=== PATIENT | female | born 1975 | race African-American/Black ===

== ENCOUNTER 2016-04-30 23:24 | Emergency (ER) | payer OTHER ==
[2016-04-30 23:34] VITALS: BP 115/69; PULSE 75; TEMP 98.4; BMI 36.3
--- NOTE | 2016-04-30 23:37 | PDOC ---
History of Present Illness - General Chief Complaint: Injury Stated Complaint: RT ARM INJURY Time Seen by Provider: 04/30/16 23:28 History Source: Patient Exam Limitations: No Limitations - History of Present Illness Initial Comments: 04/30/16 23:28 This is a 41-year-old female comes in complaining of a bruise on her right forearm and is concerned about a blood clot. Patient said she has a history of DVT. Patient said she was moving some heavy items when one of the eyelids had a sharp edge that resulted in a small penetrating injury to her arm. Patient said shortly after that she was lifting and other heavy item it suddenly blew up and became swollen and bruised looking. Patient is not currently on any blood thinners. Patient denies any other symptoms. PAST MEDICAL HISTORY: As per history of present illness PAST SURGICAL HISTORY: no significant history FAMILY HISTORY: no pertinant history SOCIAL HISTORY: Pt lives with family and is employed. MEDICATIONS: reviewed ALLERGIES: As per nursing notes Review of Systems General: No fevers or chills, no weakness, no weight loss HEENT: No change in vision. No sore throat,. No ear pain CardioVascular: No chest pain or shortness of breath Respiratory:No cough, or wheezing. Gastrointestinal: no nausea, vomitting, diarrhea or constipation, No rectal bleeding Genitourinary: No dysuria, hematuria, or frequency Musculoskeletal: Left forearm as per history of present illness Neurologic: No headache, vertigo, dizziness or loss of consciousness Psychiatric: nor depression Skin: No rashes or easy bruising Endocrine: no increased thirst or abnormal weight change Allergic: no skin or latex allergy All other systems reviewed and normal GENERAL: The patient is awake, alert, and fully oriented, in no acute distress. HEAD: Normal with no signs of trauma. EYES: Pupils equal, round and reactive to light, extraocular movements intact, sclera anicteric, conjunctiva clear. EXTREMITIES: Normal range of motion, no edema. Left forearm: There is a contusion of the flexor surface of the left forearm that has approximate dimensions of a 3 x 2" area. There is some mild tenderness to the area. Neurovascular distal is intact. There is no tender palpable cord above the contusion. NEUROLOGICAL: Normal speech, normal gait. PSYCH: Normal mood, normal affect. SKIN: Warm, Dry, normal turgor, no rashes or lesions noted. Assessment and plan: This is a 41-year-old female who injured her right forearm resulting in a contusion to the forearm. Patient was reassured that this was not a type of blood clot that she needs to be worried about and that she can ice the area Tylenol for pain and follow-up with her doctor as needed Past History - Past Medical History Allergies/Adverse Reactions: Allergies Allergy/AdvReac Type Severity Reaction Status Date / Time Iodinated Contrast Media - Allergy Severe Difficulty Verified 01/31/15 00:10 Oral and Breathing codeine [Codeine] Allergy Verified 03/11/15 08:31 iodine [Iodine] Allergy Rash Verified 03/11/15 08:31 shellfish derived Allergy Difficulty Verified 03/11/15 08:31 Breathing vancomycin Allergy Hives Verified 03/11/15 08:31 venom-honey bee Allergy Verified 03/11/15 08:31 [bee venom (honey bee)] tree nuts Allergy Unknown Uncoded 03/11/15 08:31 BLUEBERRIES Allergy Uncoded 03/11/15 08:31 CANTALOUPE Allergy Difficulty Uncoded 03/11/15 08:31 Breathing KIWI Allergy Difficulty Uncoded 03/11/15 08:31 Breathing LO Allergy Difficulty Uncoded 01/31/15 00:10 Breathing STRAWBERRIES Allergy Difficulty Uncoded 01/31/15 00:10 Breathing TUNA Allergy Uncoded 01/31/15 00:10 Home Medications: Ambulatory Orders Atazanavir Sulfate/Cobicistat [Evotaz 300 mg-150 mg Tablet] 1 each PO DAILY 01/20 Emtricitabine/Tenofovir [Truvada -] 1 tab PO DAILY 01/17/15 Fluoxetine HCl [Prozac] 10 mg PO DAILY 01/17/15 Albuterol Sulfate Inhaler - [Ventolin HFA Inhaler -] 2 inh PO Q4H PRN #1 inh Alprazolam [Xanax] 0.5 mg PO DAILY PRN #0 01/21/15 Tiotropium [place] [Spiriva] 1 inh PO DAILY #1 inhaler 01/21/15 Anemia: No Asthma: Yes Cancer: No Cardiac Disorders: No CVA: Yes COPD: No CHF: No Dementia: No Diabetes: No GI Disorders: No Disorders: No HTN: No Hypercholesterolemia: No HIV: Yes Liver Disease: No Psychiatric Problems: Yes (anxiety) Seizures: No Thyroid Disease: No - Surgical History Abdominal Surgery: Yes Appendectomy: Yes Cardiac Surgery: No Cholecystectomy: No Lung Surgery: No Neurologic Surgery: No Orthopedic Surgery: No - Immunization History Td Vaccination: Yes Immunization Up to Date: Yes - Psycho/Social/Smoking Cessation Hx Anxiety: No Suicidal Ideation: No Smoking Status: No Smoking History: Never smoked Have you smoked in the past 12 months: No Number of Cigarettes Smoked Daily: 0 If you are a former smoker, when did you quit?: many years ago Hx Alcohol Use: Yes (SOCIAL) Drug/Substance Use Hx: No Substance Use Type: None Hx Substance Use Treatment: No *DC/Admit/Observation/Transfer Diagnosis at time of Disposition: Contusion of right forearm - Discharge Dispostion Disposition: HOME Condition at time of disposition: Stable Admit: No - Patient Instructions Additional Instructions: You can take Tylenol as needed for pain. You can also apply some ice to the area 20 minutes at a time 3 times a day for the next 2 days. Return to the emergency department immediately with ANY new, persistent or worsening symptoms. Continue any medications as previously prescribed by your physician. You should follow up with your primary doctor as soon as possible regarding today's emergency department visit. . Please make sure your doctor reviews the results of your emergency evaluation. Thank you for coming to the Emergency Department today for your care. It was a pleasure to see you today. Please note that your evaluation is INCOMPLETE until you follow-up with your doctor.
== END 2016-04-30 23:43 | disposition home or self-care (01) ==
LOC: FER 23:24
DX: S50.11XA Contusion of right forearm, initial encounter (principal); W22.8XXA Striking against or struck by other objects, initial encounter; Y93.89 Activity, other specified; Y92.9 Unspecified place or not applicable; J45.909 Unspecified asthma, uncomplicated; Z86.73 Personal history of transient ischemic attack (TIA), and cerebral infarction without residual deficits; F41.9 Anxiety disorder, unspecified; Z21 Asymptomatic human immunodeficiency virus [HIV] infection status
CPT/HCPCS: 99282-25

== ENCOUNTER 2017-05-17 16:01 | Emergency (ER) | payer OTHER ==
[2017-05-17 16:24] VITALS: BP 146/74; PULSE 94; TEMP 98.6; BMI 35.5
--- NOTE | 2017-05-17 16:54 | PDOC ---
History of Present Illness - General History Source: Patient Exam Limitations: No Limitations - History of Present Illness Initial Comments: The patient is a 42 year old female with significant past medical history of asthma, anxiety, CVA, COPD and HIV presents to the ED with Flu like symptoms since 6 days ago. The patient reports not getting a flu shot recently. 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 Associated symptoms includes, feeling weak , body ache, and diaphoresis and productive cough with yellow to green phlegm produced. Social History: The patient denies smoking or the use of any recreational drugs. The patient reports shes a social drinker. Surgical History: The patient reports getting a hysterectomy. 05/17/17 17:40 <Briana Brown - Last Filed: 05/17/17 17:40> <Linda Vincent - Last Filed: 05/17/17 18:45> - General Chief Complaint: Respiratory Stated Complaint: FLU LIKE SYMPTMOS Time Seen by Provider: 05/17/17 16:08 Past History <Briana Brown - Last Filed: 05/17/17 17:40> - Past Medical History Anemia: No Asthma: Yes Cancer: No Cardiac Disorders: No CVA: Yes COPD: Yes CHF: No Dementia: No Diabetes: No GI Disorders: No Disorders: No HTN: No Hypercholesterolemia: No Liver Disease: No Psychiatric Problems: Yes (anxiety) Seizures: No Thyroid Disease: No Other medical history: HIV - Surgical History Abdominal Surgery: Yes Appendectomy: Yes Cardiac Surgery: No Cholecystectomy: No Lung Surgery: No Neurologic Surgery: No Orthopedic Surgery: No Other Surgical History: Hysterectomy 05/17/17 16:50 - Immunization History Td Vaccination: Yes Immunization Up to Date: Yes - Suicide/Smoking/Psychosocial Hx Smoking Status: No Smoking History: Former smoker Have you smoked in the past 12 months: No Number of Cigarettes Smoked Daily: 0 If you are a former smoker, when did you quit?: many years ago Information on smoking cessation initiated: No Hx Alcohol Use: No Drug/Substance Use Hx: No Substance Use Type: None Hx Substance Use Treatment: No <Linda Vincent - Last Filed: 05/17/17 18:45> - Past Medical History Allergies/Adverse Reactions: Allergies Allergy/AdvReac Type Severity Reaction Status Date / Time Iodinated Contrast- Oral and Allergy Severe Difficulty Verified 05/17/17 16:03 IV Dye Breathing codeine [Codeine] Allergy Verified 05/17/17 16:03 iodine [Iodine] Allergy Rash Verified 05/17/17 16:03 shellfish derived Allergy Difficulty Verified 05/17/17 16:03 Breathing vancomycin Allergy Hives Verified 05/17/17 16:03 venom-honey bee Allergy Verified 05/17/17 16:03 [bee venom (honey bee)] tree nuts Allergy Unknown Uncoded 03/11/15 08:31 BLUEBERRIES Allergy Uncoded 03/11/15 08:31 CANTALOUPE Allergy Difficulty Uncoded 03/11/15 08:31 Breathing KIWI Allergy Difficulty Uncoded 03/11/15 08:31 Breathing LO Allergy Difficulty Uncoded 01/31/15 00:10 Breathing STRAWBERRIES Allergy Difficulty Uncoded 01/31/15 00:10 Breathing TUNA Allergy Uncoded 01/31/15 00:10 Home Medications: Ambulatory Orders Atazanavir Sulfate/Cobicistat [Evotaz 300 mg-150 mg Tablet] 1 each PO HS Fluoxetine HCl [Prozac] 10 mg PO DAILY 01/17/15 Albuterol Sulfate Inhaler - [Ventolin HFA Inhaler -] 2 inh PO Q4H PRN #1 inh Alprazolam [Xanax] 0.5 mg PO DAILY PRN #0 01/21/15 Tiotropium [place] [Spiriva] 1 inh PO DAILY #1 inhaler 01/21/15 Emtricitabine/Tenofov Alafenam [Descovy 200-25 mg Tablet (Nf)] 1 each PO HS 12/24 Prednisone 20 mg PO BID #10 tablet 05/17/17 Review of Systems - Review of Systems Able to Perform ROS?: Yes Comments:: CONSTITUTIONAL: (+) Subjective fever, chills, diaphoresis and generalized weakness. Absent: malaise, loss of appetite HEENT: Absent: rhinorrhea, nasal congestion, throat pain, throat swelling, difficulty swallowing, mouth swelling, ear pain, eye pain, visual Changes CARDIOVASCULAR: Absent: chest pain, syncope, palpitations, irregular heart rate, lightheadedness , peripheral edema RESPIRATORY: (+) productive cough with green to yellow Absent: shortness of breath, dyspnea with exertion, orthopnea, wheezing, stridor , hemoptysis GASTROINTESTINAL: Absent: abdominal pain, abdominal distension, nausea, vomiting, diarrhea, constipation, melena, hematochezia GENITOURINARY: Absent: dysuria, frequency, urgency, hesitancy, hematuria, flank pain, genital pain MUSCULOSKELETAL: Absent: myalgia, arthralgia, joint swelling SKIN: Absent: rash, itching, pallor HEMATOLOGIC/IMMUNOLOGIC: Absent: easy bleeding, easy bruising, lymphadenopathy, frequent infections ENDOCRINE: Absent: unexplained weight gain, unexplained weight loss, heat intolerance, cold intolerance NEUROLOGIC: Absent: headache, focal weakness or paresthesias, dizziness, unsteady gait, seizure, mental status changes, bladder or bowel incontinence PSYCHIATRIC: Absent: anxiety, depression, suicidal or homicidal ideation, hallucinations. 05/17/17 17:14 <Briana Brown - Last Filed: 05/17/17 17:40> *Physical Exam - Vital Signs Last Vital Signs Temp Pulse Resp BP Pulse Ox 98.6 F 94 H 18 146/74 95 05/17/17 16:02 05/17/17 16:02 05/17/17 16:02 05/17/17 16:02 05/17/17 16:02 - Physical Exam Comments: GENERAL: (+) Obese. Mild to moderate distress Well developed, well nourished. Awake and alert. HEENT: (+) dry hacking cough Normocephalic, atraumatic. PERRLA, EOMI. No conjunctival pallor. Sclera are non- icteric. Moist mucous membranes. Oropharynx is clear. Normal Tonsils. Normal pharynx without hyperemia. NECK: Supple. Full ROM. No JVD. Carotid pulses 2+ and symmetric, without bruits. No thyromegaly. No lymphadenopathy. CARDIOVASCULAR: Regular rate and rhythm. No murmurs, rubs, or gallops. Distal pulses are 2+ and symmetric. PULMONARY: (+) crackle at the right base. No evidence of respiratory distress. No wheezing, rales or rhonchi. ABDOMINAL: Soft. Non-tender. Non-distended. No rebound or guarding. No organomegaly. Normoactive bowel sounds. MUSCULOSKELETAL Normal range of motion at all joints. No bony deformities or tenderness. No CVA tenderness. EXTREMITIES: No cyanosis. No clubbing. No edema. No calf tenderness. SKIN: Warm and dry. Normal capillary refill. No rashes. No jaundice. NEUROLOGICAL: Alert, awake, appropriate. Cranial nerves 2-12 intact. No deficits to light touch and temperature in face, upper extremities and lower extremities. No motor deficits in the in face, upper extremities and lower extremities. Normoreflexic in the upper and lower extremities. Normal speech. Toes are down- going bilaterally. Gait is normal without ataxia. PSYCHIATRIC: Cooperative. Good eye contact. Appropriate mood and affect. 05/17/17 16:57 <Birana Brown - Last Filed: 05/17/17 17:40> - Vital Signs Last Vital Signs Temp Pulse Resp BP Pulse Ox 98.6 F 94 H 18 146/74 95 05/17/17 16:02 05/17/17 16:02 05/17/17 16:02 05/17/17 16:02 05/17/17 16:02 <Linda Vincent - Last Filed: 05/17/17 18:45> *DC/Admit/Observation/Transfer - Attestations Scribe Attestion: 05/17/17 17:48 Documentation prepared by Briana Brown, acting as director of medical services for Linda Vincent MD. <Briana Brown - Last Filed: 05/17/17 17:40> - Discharge Dispostion Admit: No <Linda Vincent - Last Filed: 05/17/17 18:45> Diagnosis at time of Disposition: Asthma attack - Discharge Dispostion Disposition: HOME Condition at time of disposition: Stable - Prescriptions Prescriptions: Prednisone 20 mg PO BID #10 tablet - Patient Instructions Printed Discharge Instructions: DI for Asthma -- Adult
[2017-05-17] MEDS ORDERED: ALBUTEROL SO4 2.5/IPRATROPIUM 0.5 INH SOL 3 ML VIAL.NEB. NEB ONE ×2 (17:48→17:51)
[2017-05-17] MEDS ORDERED: predniSONE 20 MG TABLET (UD) PO ONE (17:52)
[2017-05-17] MEDS ORDERED: predniSONE 20 MG TABLET (UD) ONE (17:54)
== END 2017-05-17 19:11 | disposition home or self-care (01) ==
LOC: FER 16:01
PROC: 3E0F7GC Introduction of Other Therapeutic Substance into Respiratory Tract, Via Natural or Artificial Opening (ICD-10-PCS; principal; 2017-05-17)
DX: J45.41 Moderate persistent asthma with (acute) exacerbation (principal); F41.9 Anxiety disorder, unspecified; Z21 Asymptomatic human immunodeficiency virus [HIV] infection status; Z86.73 Personal history of transient ischemic attack (TIA), and cerebral infarction without residual deficits; Z87.891 Personal history of nicotine dependence
CPT/HCPCS: 71046-TC-FY; 94640; 99281-25

== ENCOUNTER 2017-05-21 23:36 | Emergency (ER) | payer OTHER ==
--- NOTE | 2017-05-21 23:41 | PDOC ---
History of Present Illness - General Chief Complaint: Respiratory Stated Complaint: FLU Time Seen by Provider: 05/21/17 23:41 History Source: Patient Exam Limitations: No Limitations - History of Present Illness Initial Comments: 05/22/17 00:00 This is a 42-year-old female who comes in complaining of upper respiratory tract type symptoms. Patient was here 4 days ago and diagnosed with the flu. Patient was started on azithromycin and prednisone. As patient does have a history of COPD. Patient said that she hasn't gotten any better and continues to cough. Patient has one more day of the prednisone. Patient said that she is been using her inhaler helps her brief time period that symptoms return. Patient denies any fevers or chills. PAST MEDICAL HISTORY: no significant history PAST SURGICAL HISTORY: no significant history FAMILY HISTORY: no pertinant history SOCIAL HISTORY: Pt lives with family and is employed. MEDICATIONS: reviewed ALLERGIES: As per nursing notes Review of Systems General: No fevers or chills, no weakness, no weight loss HEENT: No change in vision. No sore throat,. No ear pain CardioVascular: No chest pain or shortness of breath Respiratory:+ cough, _+ wheezing. Gastrointestinal: no nausea, vomitting, diarrhea or constipation, No rectal bleeding Genitourinary: No dysuria, hematuria, or frequency Musculoskeletal: No joint or muscle pain or swelling Neurologic: No headache, vertigo, dizziness or loss of consciousness Psychiatric: nor depression Skin: No rashes or easy bruising Endocrine: no increased thirst or abnormal weight change Allergic: no skin or latex allergy All other systems reviewed and normal Exam: General: Well-nourished well-developed individual, no acute distress HEENT: Throat: Normal, tonsils normal, no erythema or exudate Neck: Supple, no meningeal signs, no lymphadenopathy Eyes::Pupils equal reactive and round, extraocular motion intact Chest: Nontender to palpation Cardiac: S1-S2 normal, regular rate and rhythm, no murmurs rubs or gallops Respiratory: Lungs are some mild decrease in breath sounds with mild expiratory wheezing bilateral. Abdomen: Soft, nondistended, normal bowel sounds, nontender to palpation diffusely Extremities: Warm, dry, no cyanosis, clubbing, or edema Skin: No rashes Neuro: Alert and oriented x3, CN II - XII intact, nonfocal exam with normal strength, normal sensation, normal reflexes, normal gait, Psych: Normal mood and affect Past History - Past Medical History Allergies/Adverse Reactions: Allergies Allergy/AdvReac Type Severity Reaction Status Date / Time Iodinated Contrast- Oral and Allergy Severe Difficulty Verified 05/17/17 16:03 IV Dye Breathing codeine [Codeine] Allergy Verified 05/17/17 16:03 iodine [Iodine] Allergy Rash Verified 05/17/17 16:03 shellfish derived Allergy Difficulty Verified 05/17/17 16:03 Breathing vancomycin Allergy Hives Verified 05/17/17 16:03 venom-honey bee Allergy Verified 05/17/17 16:03 [bee venom (honey bee)] tree nuts Allergy Unknown Uncoded 03/11/15 08:31 BLUEBERRIES Allergy Uncoded 03/11/15 08:31 CANTALOUPE Allergy Difficulty Uncoded 03/11/15 08:31 Breathing KIWI Allergy Difficulty Uncoded 03/11/15 08:31 Breathing LO Allergy Difficulty Uncoded 01/31/15 00:10 Breathing STRAWBERRIES Allergy Difficulty Uncoded 01/31/15 00:10 Breathing TUNA Allergy Uncoded 01/31/15 00:10 Home Medications: Ambulatory Orders Atazanavir Sulfate/Cobicistat [Evotaz 300 mg-150 mg Tablet] 1 each PO HS Fluoxetine HCl [Prozac] 10 mg PO DAILY 01/17/15 Albuterol Sulfate Inhaler - [Ventolin HFA Inhaler -] 2 inh PO Q4H PRN #1 inh Alprazolam [Xanax] 0.5 mg PO DAILY PRN #0 01/21/15 Tiotropium [place] [Spiriva] 1 inh PO DAILY #1 inhaler 01/21/15 Azithromycin 250 mg PO BID #10 tablet 05/17/17 Emtricitabine/Tenofov Alafenam [Descovy 200-25 mg Tablet (Nf)] 1 each PO HS 12/24 Prednisone 20 mg PO BID #10 tablet 05/17/17 Benzonatate [Tessalon Pearls -] 100 mg PO TID #21 capsule 05/22/17 Anemia: No Asthma: Yes Cancer: No Cardiac Disorders: No CVA: Yes COPD: Yes CHF: No Dementia: No Diabetes: No GI Disorders: No Disorders: No HTN: No Hypercholesterolemia: No Liver Disease: No Psychiatric Problems: Yes (anxiety) Seizures: No Thyroid Disease: No - Surgical History Abdominal Surgery: Yes Appendectomy: Yes Cardiac Surgery: No Cholecystectomy: No Lung Surgery: No Neurologic Surgery: No Orthopedic Surgery: No - Immunization History Td Vaccination: Yes Immunization Up to Date: Yes - Suicide/Smoking/Psychosocial Hx Smoking Status: No Smoking History: Former smoker Have you smoked in the past 12 months: No Number of Cigarettes Smoked Daily: 0 If you are a former smoker, when did you quit?: many years ago Hx Alcohol Use: No Drug/Substance Use Hx: No Substance Use Type: None Hx Substance Use Treatment: No *DC/Admit/Observation/Transfer Diagnosis at time of Disposition: Cough in adult - Discharge Dispostion Disposition: HOME Condition at time of disposition: Stable Admit: No - Prescriptions Prescriptions: Benzonatate [Tessalon Pearls -] 100 mg PO TID #21 capsule - Referrals Referrals: Lu Jay [Primary Care Provider] - - Patient Instructions Additional Instructions: For the cough take Tessalon Perles 1 as often as 3 times a day do not chew them as they will numb your mouth. Continue to use your albuterol inhaler 2 puffs as often as every 4-6 hours as needed. Finish your prednisone. Finish her azithromycin. Return to the emergency department immediately with ANY new, persistent or worsening symptoms. Continue any medications as previously prescribed by your physician. You should follow up with your primary doctor as soon as possible regarding today's emergency department visit. . Please make sure your doctor reviews the results of your emergency evaluation. Thank you for coming to the Emergency Department today for your care. It was a pleasure to see you today. Please note that your evaluation is INCOMPLETE until you follow-up with your doctor. - Post Discharge Activity
[2017-05-21] MEDS ORDERED: ALBUTEROL SO4 2.5/IPRATROPIUM 0.5 INH SOL 3 ML VIAL.NEB. NEB ONE (23:44)
[2017-05-21 23:45] VITALS: BP 125/76; PULSE 100; TEMP 98.5; BMI 35.5
== END 2017-05-22 00:27 | disposition home or self-care (01) ==
LOC: FER 23:36
PROC: 3E0F7GC Introduction of Other Therapeutic Substance into Respiratory Tract, Via Natural or Artificial Opening (ICD-10-PCS; principal; 2017-05-21)
DX: R05 Cough (principal); Z87.891 Personal history of nicotine dependence; J44.9 Chronic obstructive pulmonary disease, unspecified; F41.9 Anxiety disorder, unspecified; Z86.73 Personal history of transient ischemic attack (TIA), and cerebral infarction without residual deficits
CPT/HCPCS: 71046-TC-FY; 99281-25

== ENCOUNTER 2017-10-24 06:24 | Day surgery (SDC) | payer OTHER ==
[2017-10-23 11:51] VITALS: BMI 34.4
[~2017-10-24 06:24] MED LIST: BETAMET ACET/BETAMET NA PH 30 MG/5 ML VIAL IJ ONE; BUPIVACAINE HCL/PF 0.25% (2.5MG/ML) 10 ML VIAL IJ ONE; LIDOCAINE HCL 1%, 10 MG/ML (50 mL VIAL) IJ ONE
[2017-10-24 07:08] VITALS: TEMP 97.9
[2017-10-24] MEDS ORDERED: PROPOFOL 20 ML ONE (08:57)
[2017-10-24] MEDS ORDERED: BUPIVACAINE HCL/PF 0.25% (2.5MG/ML) 10 ML VIAL IJ ONE (09:07)
[2017-10-24] MEDS ORDERED: LIDOCAINE HCL 1%, 10 MG/ML (50 mL VIAL) IJ ONE (09:07)
[2017-10-24] MEDS ORDERED: BETAMET ACET/BETAMET NA PH 30 MG/5 ML VIAL IJ ONE (09:07)
[2017-10-24] MEDS ORDERED: LIDOCAINE HCL/PF 1% SDV 5ML VIAL ONE (09:25)
[2017-10-24] MEDS ORDERED: BUPIVACAINE HCL/PF 0.25% (2.5MG/ML) 10 ML VIAL ONE (09:26)
[2017-10-24] MEDS ORDERED: BETAMET ACET/BETAMET NA PH 30 MG/5 ML VIAL ONE (09:26)
[2017-10-24 10:06] VITALS: BP 118/72; PULSE 52
--- NOTE | 2017-10-24 13:12 | PROC ---
Procedure Note Procedure: Date of service: 10/24/2017 Preoperative Diagnosis: Low back pain and lumbar radiculopathy on Left Postoperative Diagnosis: Same Procedure Performed: Lumbar Epidural Steroid Injection (LESI) on Left L4-5 with NO dye under Fluoroscopy Anesthesia: Local / MAC Anesthesiologist: Procedure: I discussed with the patient in detail about the risks, benefits, and alternatives to treatment not only limited to infection, headache, numbness , weakness, and injury to nerves, blood vessels and muscles. The patient understood, agreed and signed the written consent. The patient was placed in the prone position with the head, abdomen and legs supported with the pillows. The lumbosacral area was prepped and draped with Betadine times three in a sterile fashion. Lumbar vertebrae were identified under the C-arm. At L4-5 level on the Left side, 3 ml of 1 % Lidocaine was infiltrated into the skin and subcutaneous tissue. A 3 inch, #20 gauge Tuohy needle was advanced to the epidural space with loss of resistance technique under fluoroscopic guidance. Aspiration was negative for cerebrospinal fluid and blood. A solution of 2.5 ml of Celestone, 2.5 ml of 0.25% Marcaine and a total of 5 ml was injected slowly. While Tuohy needle was withdrawn 2.0 ml of 1 % Lidocaine was infiltrated. Bleeding was checked. Betadine was wiped off. A sterile bandage was placed. The patient tolerated the procedure well. There were no immediate complications. The patient was transferred to the recovery room. The patient was observed for some time and discharged as per ASU criteria. The patient was told to apply ice at the injection site. Follow up appointment was given and also call my office at [phone]. If there is any problem, call my office or report to Emergency Room. Luther Quiros M.D.
== END 2017-10-24 10:40 | disposition home or self-care (01) ==
LOC: JASU-SURG 06:24
PROVIDERS: ATTEND Physical Medicine & Rehabilitation
PROC: 3E0R33Z Introduction of Anti-inflammatory into Spinal Canal, Percutaneous Approach (ICD-10-PCS; 2017-10-24)
PROC: B01BZZZ Fluoroscopy of Spinal Cord (ICD-10-PCS; 2017-10-24)
PROC: 3E0R3BZ Introduction of Anesthetic Agent into Spinal Canal, Percutaneous Approach (ICD-10-PCS; principal; 2017-10-24 08:00)
DX: M54.16 Radiculopathy, lumbar region (principal); M54.5 Low back pain
CPT/HCPCS: 76000-TC-FY

== ENCOUNTER 2017-11-11 14:23 | Emergency (ER) | payer OTHER ==
[2017-11-11 14:48] VITALS: BP 130/91; PULSE 74; TEMP 98.3; BMI 36.0
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
[2017-11-11] MEDS ORDERED: KETOROLAC TROMETHAMINE 30 MG/1 ML VIAL IM ONE (15:09)
[2017-11-11] MEDS ORDERED: KETOROLAC TROMETHAMINE 30 MG/1 ML VIAL ONE (15:19)
== END 2017-11-11 16:36 | disposition home or self-care (01) ==
LOC: FER 14:23
CPT/HCPCS: 72131-TC; 99281-25

== ENCOUNTER 2018-02-12 01:06 | Observation (INO) | payer OTHER ==
[2018-02-12 01:13] VITALS: BMI 37.1
[2018-02-12] MEDS ORDERED: SODIUM CHLORIDE 0.9% 1000 ML INFUS.BAG IV ONE (01:13)
[2018-02-12] MEDS ORDERED: ACETAMINOPHEN 1000 MG/100 ML VIAL (NON FORMULARY) IVPB ONE (01:13)
[2018-02-12] MEDS ORDERED: KETOROLAC TROMETHAMINE 30 MG/1 ML VIAL IVPUSH ONE (01:13)
[2018-02-12] MEDS ORDERED: DEXAMETHASONE SOD PHOSPHATE 4 MG/1 ML VIAL IVPUSH ONE (01:13)
--- NOTE | 2018-02-12 01:13 | PDOC ---
History of Present Illness - General Chief Complaint: Pain Stated Complaint: SORE THROAT Time Seen by Provider: 02/12/18 01:12 - History of Present Illness Initial Comments: 02/12/18 01:37 44 years old HIV +, undetectable VL, presents to the ED with six-day history of progressively worsening fever chills body aches nasal congestion and sore throat. Sore throat is severe 10 out of 10 associated with hoarse voice no drooling no neck stiffness with generalized body aches mild headache coughing Past History - Past Medical History Allergies/Adverse Reactions: Allergies Allergy/AdvReac Type Severity Reaction Status Date / Time Iodinated Contrast- Oral and Allergy Severe Difficulty Verified 02/12/18 02:45 IV Dye Breathing metronidazole [From Flagyl] Allergy Severe Verified 02/12/18 02:45 codeine [Codeine] Allergy Verified 02/12/18 02:45 iodine [Iodine] Allergy Rash Verified 02/12/18 02:45 shellfish derived Allergy Difficulty Verified 02/12/18 02:45 Breathing vancomycin Allergy Hives Verified 02/12/18 02:45 venom-honey bee Allergy Verified 02/12/18 02:45 [bee venom (honey bee)] BLUEBERRIES Allergy Unknown Rash Uncoded 02/12/18 02:49 CANTALOUPE Allergy Unknown Difficulty Uncoded 02/12/18 02:50 Breathing KIWI Allergy Unknown Difficulty Uncoded 02/12/18 02:50 Breathing LO Allergy Unknown Difficulty Uncoded 02/12/18 02:50 Breathing STRAWBERRIES Allergy Unknown Difficulty Uncoded 02/12/18 02:50 Breathing tree nuts Allergy Unknown Rash Uncoded 02/12/18 02:48 TUNA Allergy Unknown Uncoded 02/12/18 02:51 Home Medications: Ambulatory Orders Atazanavir Sulfate/Cobicistat [Evotaz 300 mg-150 mg Tablet] 1 each PO HS Albuterol Sulfate Inhaler - [Ventolin HFA Inhaler -] 2 inh PO Q4H PRN #1 inh Tiotropium [place] [Spiriva] 1 inh PO DAILY #1 inhaler 01/21/15 Emtricitabine/Tenofov Alafenam [Descovy 200-25 mg Tablet (Nf)] 1 each PO HS 12/24 Alprazolam [Xanax] 1 mg PO DAILY PRN 10/23/17 Anemia: Yes Asthma: Yes Cancer: No Cardiac Disorders: No CVA: Yes (rt. sided cva 2002) COPD: Yes CHF: No Dementia: No Diabetes: Yes (gestational in 2006) GI Disorders: No Disorders: No (incontenence) HTN: No Hypercholesterolemia: No Liver Disease: No Psychiatric Problems: Yes (anxiety) Seizures: No Thyroid Disease: No - Surgical History Abdominal Surgery: Yes Appendectomy: Yes Cardiac Surgery: No Cholecystectomy: No Lung Surgery: No Neurologic Surgery: No Orthopedic Surgery: No - Immunization History Td Vaccination: Yes Immunization Up to Date: Yes - Suicide/Smoking/Psychosocial Hx Smoking Status: No Smoking History: Never smoked Have you smoked in the past 12 months: No Number of Cigarettes Smoked Daily: 0 If you are a former smoker, when did you quit?: many years ago Hx Alcohol Use: No Drug/Substance Use Hx: No Substance Use Type: None Hx Substance Use Treatment: No Review of Systems - Review of Systems Comments:: 02/12/18 01:39 ROS: A complete review of 10 out of 10 review of systems is taken and is negative apart from what is previously mentioned below and in the HPI. *Physical Exam - Physical Exam Comments: 02/12/18 01:39 Vitals: Triage Vital signs reviewed General Appearance: no acute distress, well nourished well developed, Head: Atraumatic, Eyes: Pupils equal reactive round, extraocular movement intact Ears: TM's normal bilaterally; Nose: Nares patent bilaterally;no nasal congestion Throat: Posterior oropharynx with erythema, mucous membranes moist, Neck: Supple;No Nucal rigidity, no stridor Chest Wall: Nontender Cardiac: Regular rate and rhythym, no murmurs, no rubs, no gallops, Lungs: Clear to auscultation bilateral, good air movement bilaterally, Abdomen: Soft, non distended, normal bowel sounds, non tender to palpation Extremities: Full range of motion to all extremities, no cyanosis, clubbing, or edema Skin: Warm and dry, no rashes or lesions, no rash, no petechiae Psych: normal mood, normal affect ED Treatment Course - LABORATORY CBC & Chemistry Diagram: 02/12/18 01:20 02/12/18 01:20 Medical Decision Making - Medical Decision Making 02/12/18 03:46 44 years old HIV +, undetectable VL, presents to the ED with six-day history of progressively worsening fever chills body aches nasal congestion and sore throat. Sore throat is severe, associated with hoarse voice no drooling no neck stiffness with nasal congestion, generalized body aches mild headache coughing Plan is flu swab rapid strep labs IV Tylenol IV Decadron IV Toradol observe and reassess Reevaluation patient feels somewhat better but does not feel well enough to return home Given comorbidities and persistence of symptomatology we'll observe overnight. Re-evaluation 330am. No difficulty breathing no stridor no fever no tripoding no drooling, Pt has been able to tolerate some fluids at home but with pain A soft tissue next x-ray was performed which demonstrated no evidence of epiglottitis interpreted by me At this time my suspicion for epiglottitis is low most likely she has a bad viral pharyngitis/influenza or influenza-like illness Given patient's persistence of symptoms despite treatment in the ED we'll observe overnight for continued symptomatic treatment IV fluids and monitoring. *DC/Admit/Observation/Transfer Diagnosis at time of Disposition: Influenza-like illness - Discharge Dispostion Condition at time of disposition: Stable Decision to Admit order: Yes - Referrals - Patient Instructions - Post Discharge Activity
[2018-02-12] MEDS ORDERED: ALBUTEROL SO4 2.5/IPRATROPIUM 0.5 INH SOL 3 ML VIAL.NEB. NEB ONE (01:39)
[2018-02-12] MEDS ORDERED: ONDANSETRON 4 MG/2 ML VIAL IVPUSH ONE (02:00)
[2018-02-12 02:38] LABS: BASO % 0.6 % (0-2.0); EOS % 2.7 % (0-4.5); HEMATOCRIT 39.4 % (32.4-45.2); HEMOGLOBIN 13.2 GM/dL (10.7-15.3); MCH 27.2 pg (25.7-33.7); MCHC 33.6 g/dl (32.0-36.0); MONO % 10.1 % (3.8-10.2); NEUT % 38.6 % (42.8-82.8); PLATELET COUNT 249 K/MM3 (134-434); RBC 4.86 M/mm3 (3.60-5.2); RDW 12.4 % (11.6-15.6); WHITE BLOOD COUNT 5.6 K/mm3 (4.0-10.0)
[2018-02-12 02:43] LABS: ALBUMIN 3.4 g/dl (3.4-5.0); ALK PHOS 84 U/L (45-117); ANION GAP 6 MMOL/L (8-16); BILIRUBIN,TOTAL 0.4 mg/dL (0.2-1); BLOOD UREA NITROGEN 6 mg/dL (7-18); CALCIUM 8.1 mg/dL (8.5-10.1); CHLORIDE 105 mmol/L (98-107); CO2 27 mmol/L (21-32); CREATININE 0.7 mg/dL (0.55-1.3); GLUCOSE,RANDOM 103 mg/dL (74-106); POTASSIUM 3.8 mmol/L (3.5-5.1); SGOT/AST 24 U/L (15-37); SGPT/ALT 40 U/L (13-61); SODIUM 139 mmol/L (136-145)
[2018-02-12] MEDS ORDERED: OSELTAMIVIR PHOSPHATE 75 MG CAPSULE PO ONE ×2 (03:04→15:30)
[2018-02-12] MEDS ORDERED: OSELTAMIVIR PHOSPHATE 75 MG CAPSULE ONE (03:13)
[2018-02-12] MEDS ORDERED: ONDANSETRON 4 MG/2 ML VIAL IVPUSH PRN (03:16)
[2018-02-12] MEDS ORDERED: SODIUM CHLORIDE 1,000 ML IV SCH (03:30)
[2018-02-12] MEDS ORDERED: ACETAMINOPHEN 650 MG/20.3 ML ORAL SOLUTION (CUPS) PO PRN (08:00)
[2018-02-12] MEDS ORDERED: PT OWN MED DRAWER 7, Y5N ONE (09:15)
[2018-02-12] MEDS ORDERED: ALBUTEROL SO4 8 GM HFA INHALER IH PRN (09:35)
[2018-02-12] MEDS ORDERED: PATIENT'S OWN MEDICATION (NON-FORMULARY) (Alprazolam [Xanax] 1 MG) PO PRN (09:35)
--- NOTE | 2018-02-12 09:35 | HP ---
CHIEF COMPLAINT: Fever, sore throat, malaise PCP: Dr. Mauricio, [facility]; [phone]; FAX [phone] HISTORY OF PRESENT ILLNESS: 43 year-old female with a PMH significant for asthma, COPD, and HIV. Patient presents with a complaint of fever, sweats, chills, nasal congestion, sore throat, and body aches x 1 week. ER course was notable for: (1) Afebrile, no leukocytosis (2) CXR and soft tissue neck xray unremarkable (3) Decadron 4mg x 1; NS x 1L; Tamiflu x 1 Recent Travel: No PAST MEDICAL HISTORY: Asthma COPD HIV CVA (2002) Pulmonary embolus (2013) Gestational diabetes (2006) Anxiety PAST SURGICAL HISTORY: x 2 Appendectomy Hysterectomy Tonsillectomy & adenoidectomy Social History: Smoking: former Alcohol: denies Drugs: denies Family History: Allergies Iodinated Contrast- Oral and IV Dye Allergy (Severe, Verified 02/12/18 02:45) Difficulty Breathing intubated metronidazole [From Flagyl] Allergy (Severe, Verified 02/12/18 02:45) shock codeine [Codeine] Allergy (Verified 02/12/18 02:45) ANAPHYLAXIS iodine [Iodine] Allergy (Verified 02/12/18 02:45) Rash shellfish derived Allergy (Verified 02/12/18 02:45) Difficulty Breathing vancomycin Allergy (Verified 02/12/18 02:45) Hives itchy tongue venom-honey bee [bee venom (honey bee)] Allergy (Verified 02/12/18 02:45) BLUEBERRIES Allergy (Unknown, Uncoded 02/12/18 02:49) Rash CANTALOUPE Allergy (Unknown, Uncoded 02/12/18 02:50) Difficulty Breathing KIWI Allergy (Unknown, Uncoded 02/12/18 02:50) Difficulty Breathing LO Allergy (Unknown, Uncoded 02/12/18 02:50) Difficulty Breathing STRAWBERRIES Allergy (Unknown, Uncoded 02/12/18 02:50) Difficulty Breathing tree nuts Allergy (Unknown, Uncoded 02/12/18 02:48) Rash TUNA Allergy (Unknown, Uncoded 02/12/18 02:51) HOME MEDICATIONS: Home Medications Medication Instructions Recorded Atazanavir Sulfate/Cobicistat 1 each PO HS 01/17/15 [Evotaz 300 mg-150 mg Tablet] Albuterol Sulfate Inhaler - 2 inh PO Q4H PRN #1 inh 01/21/15 [Ventolin HFA Inhaler -] Tiotropium [place] [Spiriva] 1 inh PO DAILY #1 inhaler 01/21/15 Emtricitabine/Tenofov Alafenam 1 each PO HS 05/17/17 [Descovy 200-25 mg Tablet (Nf)] Alprazolam [Xanax] 1 mg PO DAILY PRN 10/23/17 REVIEW OF SYSTEMS CONSTITUTIONAL: Absent: fever, chills, diaphoresis, generalized weakness, malaise, loss of appetite, weight change HEENT: Absent: rhinorrhea, nasal congestion, throat pain, throat swelling, difficulty swallowing, mouth swelling, ear pain, eye pain, visual changes CARDIOVASCULAR: Absent: chest pain, syncope, palpitations, irregular heart rate, lightheadedness , peripheral edema RESPIRATORY: Absent: cough, shortness of breath, dyspnea with exertion, orthopnea, wheezing, stridor, hemoptysis GASTROINTESTINAL: Absent: abdominal pain, abdominal distension, nausea, vomiting, diarrhea, constipation, melena, hematochezia GENITOURINARY: Absent: dysuria, frequency, urgency, hesitancy, hematuria, flank pain, genital pain MUSCULOSKELETAL: Absent: myalgia, arthralgia, joint swelling, back pain, neck pain SKIN: Absent: rash, itching, pallor HEMATOLOGIC/IMMUNOLOGIC: Absent: easy bleeding, easy bruising, lymphadenopathy, frequent infections ENDOCRINE: Absent: unexplained weight gain, unexplained weight loss, heat intolerance, cold intolerance NEUROLOGIC: Absent: headache, focal weakness or paresthesias, dizziness, unsteady gait, seizure, mental status changes, bladder or bowel incontinence PSYCHIATRIC: Absent: anxiety, depression, suicidal or homicidal ideation, hallucinations. PHYSICAL EXAMINATION Vital Signs - 24 hr 02/12/18 02/12/18 02/12/18 01:08 02:12 02:36 Temperature 98.6 F Pulse Rate 98 H Pulse Rate [ 78 Right Radial] Respiratory 19 18 Rate Blood Pressure 149/103 H Blood Pressure 107/60 [Left Arm] O2 Sat by Pulse 97 97 100 Oximetry (%) GENERAL: Awake, alert, and fully oriented, in no acute distress. HEAD: Normal with no signs of trauma. EYES: Pupils equal, round and reactive to light, extraocular movements intact, sclera anicteric, conjunctiva clear. No lid lag. EARS, NOSE, THROAT: Ears normal, nares patent, oropharynx clear without exudates. Moist mucous membranes. NECK: Normal range of motion, supple without lymphadenopathy, JVD, or masses. LUNGS: Breath sounds equal, clear to auscultation bilaterally. No wheezes, and no crackles. No accessory muscle use. HEART: Regular rate and rhythm, normal S1 and S2 without murmur, rub or gallop. ABDOMEN: Soft, nontender, not distended, normoactive bowel sounds, no guarding, no rebound, no masses. No hepatomegaly or splenomegaly. MUSCULOSKELETAL: Normal range of motion at all joints. No bony deformities or tenderness. No CVA tenderness. UPPER EXTREMITIES: 2+ pulses, warm, well-perfused. No cyanosis. No clubbing. No peripheral edema. LOWER EXTREMITIES: 2+ pulses, warm, well-perfused. No calf tenderness. No peripheral edema. NEUROLOGICAL: Cranial nerves II-XII intact. Normal speech. Self positions easily. PSYCHIATRIC: Cooperative. Good eye contact. Appropriate mood and affect. SKIN: Warm, dry, normal turgor, no rashes or lesions noted, normal capillary refill. Laboratory Results - last 24 hr 02/12/18 02/12/18 02/12/18 01:20 01:20 01:20 WBC 5.6 RBC 4.86 Hgb 13.2 Hct 39.4 MCV 81.0 MCH 27.2 MCHC 33.6 RDW 12.4 Plt Count 249 MPV 9.0 D Absolute Neuts (auto) 2.2 Neutrophils % 38.6 L D Lymphocytes % 48.0 H D Monocytes % 10.1 Eosinophils % 2.7 Basophils % 0.6 Nucleated RBC % 0 Sodium Potassium Chloride Carbon Dioxide Anion Gap BUN Creatinine Creat Clearance w eGFR Random Glucose Calcium Total Bilirubin AST ALT Alkaline Phosphatase Creatine Kinase Troponin I Total Protein Albumin Influenza A (Rapid) Negative Influenza B (Rapid) Negative Group A Strep Rapid Negative 02/12/18 01:20 WBC RBC Hgb Hct MCV MCH MCHC RDW Plt Count MPV Absolute Neuts (auto) Neutrophils % Lymphocytes % Monocytes % Eosinophils % Basophils % Nucleated RBC % Sodium 139 Potassium 3.8 Chloride 105 Carbon Dioxide 27 Anion Gap 6 L BUN 6 L Creatinine 0.7 Creat Clearance w eGFR > 60 Random Glucose 103 Calcium 8.1 L Total Bilirubin 0.4 AST 24 ALT 40 Alkaline Phosphatase 84 Creatine Kinase 116 Troponin I < 0.02 Total Protein 7.0 Albumin 3.4 Influenza A (Rapid) Influenza B (Rapid) Group A Strep Rapid ASSESSMENT/PLAN 43 year-old female with a PMH significant for asthma, COPD, HIV, CVA, and h/o pulmonary embolus. Placed on observation for viral symptoms. Viral syndrome --afebrile, elevated lymphocytes --CXR and soft tissue neck xray unremarkable --flu negative, GAS negative --continue empiric Tamiflu Asthma COPD --no wheezing on exam --continue home Spiriva --pre post prior to discharge HIV --follows with Dr. Johnson at [facility], last seen in December, compliant with meds; viral load undetectable per patient CVA h/o PE --has not been on anticoagulation since 2014; per patient, PE was thought to be secondary to oral contraceptives FEN Fluids: PO intake adequate Electrolytes: replete as indicated Nutrition: regular diet DVT prophylaxis: oob, ambulation Dispo: continues to require inpatient care. Full code. Visit type - Emergency Visit Emergency Visit: Yes ED Registration Date: 02/12/18 Care time: The patient presented to the Emergency Department on the above date and was hospitalized for further evaluation of their emergent condition. - New Patient This patient is new to me today: Yes Date on this admission: 02/12/18 - Critical Care Critical Care patient: No
[2018-02-12] MEDS ORDERED: TIOTROPIUM BROMIDE 2.5 MCG (SPIRIVA) RESPIMAT INHALER IH SCH (10:00)
[2018-02-12 10:08] VITALS: PULSE 76
[2018-02-12] MEDS ORDERED: ALPRAZolam 1 MG TABLET PO PRN (10:11)
[2018-02-12 14:11] VITALS: BP 124/70; TEMP 98.5
--- NOTE | 2018-02-12 14:52 | DS ---
Physical Exam: SUBJECTIVE: Patient seen and examined OBJECTIVE: Vital Signs Period Temp Pulse Resp BP Sys/Rodríguez Pulse Ox Last 24 Hr 97.7 F-98.6 F 76-98 18-19 107-149/56-103 97-100 PHYSICAL EXAM GENERAL: The patient is awake, alert, and fully oriented, in no acute distress. HEAD: Normal with no signs of trauma. EYES: PERRL, extraocular movements intact, sclera anicteric, conjunctiva clear. ENT: Ears normal, nares patent, oropharynx clear without exudates, moist mucous membranes. NECK: Trachea midline, full range of motion, supple. LUNGS: Breath sounds equal, clear to auscultation bilaterally, no wheezes, no crackles, no accessory muscle use. HEART: Regular rate and rhythm, S1, S2 without murmur, rub or gallop. ABDOMEN: Soft, nontender, nondistended, normoactive bowel sounds, no guarding, no rebound, no hepatosplenomegaly, no masses. EXTREMITIES: 2+ pulses, warm, well-perfused, no edema. NEUROLOGICAL: Cranial nerves II through XII grossly intact. Normal speech, gait not observed. PSYCH: Normal mood, normal affect. SKIN: Warm, dry, normal turgor, no rashes or lesions noted. LABS Laboratory Results - last 24 hr 02/12/18 02/12/18 02/12/18 01:20 01:20 01:20 WBC 5.6 RBC 4.86 Hgb 13.2 Hct 39.4 MCV 81.0 MCH 27.2 MCHC 33.6 RDW 12.4 Plt Count 249 MPV 9.0 D Absolute Neuts (auto) 2.2 Neutrophils % 38.6 L D Lymphocytes % 48.0 H D Monocytes % 10.1 Eosinophils % 2.7 Basophils % 0.6 Nucleated RBC % 0 Sodium Potassium Chloride Carbon Dioxide Anion Gap BUN Creatinine Creat Clearance w eGFR Random Glucose Calcium Total Bilirubin AST ALT Alkaline Phosphatase Creatine Kinase Troponin I Total Protein Albumin Influenza A (Rapid) Negative Influenza B (Rapid) Negative Group A Strep Rapid Negative 02/12/18 01:20 WBC RBC Hgb Hct MCV MCH MCHC RDW Plt Count MPV Absolute Neuts (auto) Neutrophils % Lymphocytes % Monocytes % Eosinophils % Basophils % Nucleated RBC % Sodium 139 Potassium 3.8 Chloride 105 Carbon Dioxide 27 Anion Gap 6 L BUN 6 L Creatinine 0.7 Creat Clearance w eGFR > 60 Random Glucose 103 Calcium 8.1 L Total Bilirubin 0.4 AST 24 ALT 40 Alkaline Phosphatase 84 Creatine Kinase 116 Troponin I < 0.02 Total Protein 7.0 Albumin 3.4 Influenza A (Rapid) Influenza B (Rapid) Group A Strep Rapid HOSPITAL COURSE: Date of Admission:02/12/18 Date of Discharge: 02/12/18 43 year-old female with a PMH significant for asthma, COPD, HIV, CVA, and h/o pulmonary embolus. Placed on observation for viral symptoms. Viral syndrome --afebrile, elevated lymphocytes --CXR and soft tissue neck xray unremarkable --flu negative, GAS negative --continue empiric Tamiflu; will discharge with kristina and Braden Urrutia Asthma COPD --no documented wheezing during this visit --continue home Spiriva, albuterol inhaler --pre post: satting 99% on room air with flat surface walking HIV --follows with Dr. Johnson at [facility], last seen in December, compliant with meds; viral load undetectable per patient CVA h/o PE --has not been on anticoagulation since 2014; per patient, PE was thought to be secondary to oral contraceptives Minutes to complete discharge: 35 Discharge Summary Reason For Visit: SORE THROAT Current Active Problems Influenza-like illness (Acute) Condition: Improved - Instructions Referrals: Lu Jay [Non Staff, Medical] - 1 Week Disposition: HOME - Home Medications Comprehensive Discharge Medication List: Ambulatory Orders Atazanavir Sulfate/Cobicistat [Evotaz 300 mg-150 mg Tablet] 1 each PO HS Albuterol Sulfate Inhaler - [Ventolin HFA Inhaler -] 2 inh PO Q4H PRN #1 inh Tiotropium [place] [Spiriva] 1 inh PO DAILY #1 inhaler 01/21/15 Emtricitabine/Tenofov Alafenam [Descovy 200-25 mg Tablet (Nf)] 1 each PO HS 12/24 Alprazolam [Xanax] 1 mg PO DAILY PRN 10/23/17 Azithromycin [Zithromax] 500 mg IV DAILY #5 vial 02/12/18 Benzonatate [Tessalon Pearls -] 100 mg PO TID #21 capsule 02/12/18 Oseltamivir Phosphate [Tamiflu -] 75 mg PO BID #8 capsule 02/12/18 This patient is new to me today: Yes Date on this admission: 02/12/18 Emergency Visit: Yes ED Registration Date: 02/12/18 Care time: The patient presented to the Emergency Department on the above date and was hospitalized for further evaluation of their emergent condition. Critical Care patient: No - Discharge Referral Referred to [facility] No
[2018-02-12] MEDS ORDERED: OSELTAMIVIR PHOSPHATE 75 MG CAPSULE PO SCH (22:00)
[2018-02-12] MEDS ORDERED: ATAZANAVIR SULFATE/COBICISTAT (EVOTAZ) TABLET PO SCH (22:00)
[2018-02-12] MEDS ORDERED: PATIENT'S OWN MEDICATION (NON-FORMULARY) (Emtricitabine/Tenofov Alafenam [Descovy 200-25 M PO SCH (22:00)
== END 2018-02-12 17:22 | disposition home or self-care (01) ==
LOC: FER 01:06 → FM/S 03:18
PROVIDERS: ADMIT Internal Medicine; ATTEND Nurse Practitioner Acute Care
PROC: 3E0F7GC Introduction of Other Therapeutic Substance into Respiratory Tract, Via Natural or Artificial Opening (ICD-10-PCS; principal; 2018-02-12)
PROC: 3E0F7GC Introduction of Other Therapeutic Substance into Respiratory Tract, Via Natural or Artificial Opening (ICD-10-PCS; 2018-02-12)
PROC: 3E0333Z Introduction of Anti-inflammatory into Peripheral Vein, Percutaneous Approach (ICD-10-PCS; 2018-02-12)
PROC: 3E0333Z Introduction of Anti-inflammatory into Peripheral Vein, Percutaneous Approach (ICD-10-PCS; 2018-02-12)
PROC: 3E033GC Introduction of Other Therapeutic Substance into Peripheral Vein, Percutaneous Approach (ICD-10-PCS; 2018-02-12)
PROC: 3E033NZ Introduction of Analgesics, Hypnotics, Sedatives into Peripheral Vein, Percutaneous Approach (ICD-10-PCS; 2018-02-12)
DX: J11.1 Influenza due to unidentified influenza virus with other respiratory manifestations (principal); B34.9 Viral infection, unspecified; J44.9 Chronic obstructive pulmonary disease, unspecified; J45.909 Unspecified asthma, uncomplicated; F41.9 Anxiety disorder, unspecified; Z21 Asymptomatic human immunodeficiency virus [HIV] infection status; Z86.73 Personal history of transient ischemic attack (TIA), and cerebral infarction without residual deficits; Z86.32 Personal history of gestational diabetes; Z86.711 Personal history of pulmonary embolism; Z88.8 Allergy status to other drugs, medicaments and biological substances; Z91.041 Radiographic dye allergy status; Z91.018 Allergy to other foods
CPT/HCPCS: 36415; 70360-TC-FY; 71045-TC-FY; 80053; 82550; 84484; 85025; 87070; 87804; 87880; 94640; 96374; 96375; 99285-25; G0378; J0131; J7030

== ENCOUNTER 2018-06-19 17:25 | Emergency (ER) | payer OTHER | END 2018-06-19 19:09 | disposition home or self-care (01) | LOC: FER 17:25 ==

== ENCOUNTER 2019-11-13 17:07 | Emergency (ER) | payer OTHER ==
[2019-11-13 17:27] VITALS: BP 131/76; PULSE 118; TEMP 98; BMI 45.1
[2019-11-13] MEDS ORDERED: ACETAMINOPHEN 325 MG TABLET (FP) PO ONE (17:28)
--- NOTE | 2019-11-13 17:28 | PDOC ---
Rapid Medical Evaluation Chief Complaint: Injury Time Seen by Provider: 11/13/19 17:24 Medical Evaluation: Allergies Allergy/AdvReac Type Severity Reaction Status Date / Time Iodinated Contrast Media Allergy Severe Difficulty Verified 06/19/18 17:26 Breathing metronidazole [From Flagyl] Allergy Severe Verified 06/19/18 17:26 codeine [Codeine] Allergy Verified 06/19/18 17:26 iodine [Iodine] Allergy Rash Verified 06/19/18 17:26 shellfish derived Allergy Difficulty Verified 06/19/18 17:26 Breathing sulfamethoxazole Allergy Verified 06/19/18 18:21 [From Bactrim] trimethoprim [From Bactrim] Allergy Verified 06/19/18 18:21 vancomycin Allergy Hives Verified 06/19/18 17:26 venom-honey bee Allergy Verified 06/19/18 17:26 [bee venom (honey bee)] BLUEBERRIES Allergy Unknown Rash Uncoded 06/19/18 17:26 CANTALOUPE Allergy Unknown Difficulty Uncoded 06/19/18 17:26 Breathing KIWI Allergy Unknown Difficulty Uncoded 06/19/18 17:26 Breathing LO Allergy Unknown Difficulty Uncoded 06/19/18 17:26 Breathing tree nuts Allergy Unknown Rash Uncoded 06/19/18 17:26 TUNA Allergy Unknown Uncoded 06/19/18 17:26 11/13/19 17:24 Pt Presents for evaluation of L and R hand pain s/p punching a wall today. Pt is R handed. Pt experienced a loss today Exam: Swelling to the R 4th/5th metacarple. TTP of the L 5th metacarple Orders: x-rays, tylenol Pt to proceed to the ER for evaluation Discharge Disposition - Diagnosis Hand pain Qualifiers: Laterality: bilateral Qualified Code(s): M79.641 - Pain in right hand; M79.642 - Pain in left hand - Referrals - Patient Instructions - Post Discharge Activity
--- NOTE | 2019-11-13 18:05 | PDOC ---
History of Present Illness - General Chief Complaint: Injury Stated Complaint: Punched a wall, c/o hands pain Time Seen by Provider: 11/13/19 17:24 History Source: Patient - History of Present Illness Occurred: reports: this evening Pain Location: reports: upper extremity Method of Injury: Yes: direct blow Past History - Medical History Allergies/Adverse Reactions: Allergies Allergy/AdvReac Type Severity Reaction Status Date / Time Iodinated Contrast Media Allergy Severe Difficulty Verified 06/19/18 17:26 Breathing metronidazole [From Flagyl] Allergy Severe Verified 06/19/18 17:26 codeine [Codeine] Allergy Verified 06/19/18 17:26 iodine [Iodine] Allergy Rash Verified 06/19/18 17:26 shellfish derived Allergy Difficulty Verified 06/19/18 17:26 Breathing sulfamethoxazole Allergy Verified 06/19/18 18:21 [From Bactrim] trimethoprim [From Bactrim] Allergy Verified 06/19/18 18:21 vancomycin Allergy Hives Verified 06/19/18 17:26 venom-honey bee Allergy Verified 06/19/18 17:26 [bee venom (honey bee)] BLUEBERRIES Allergy Unknown Rash Uncoded 06/19/18 17:26 CANTALOUPE Allergy Unknown Difficulty Uncoded 06/19/18 17:26 Breathing KIWI Allergy Unknown Difficulty Uncoded 06/19/18 17:26 Breathing LO Allergy Unknown Difficulty Uncoded 06/19/18 17:26 Breathing tree nuts Allergy Unknown Rash Uncoded 06/19/18 17:26 TUNA Allergy Unknown Uncoded 06/19/18 17:26 Home Medications: Ambulatory Orders Atazanavir Sulfate/Cobicistat [Evotaz 300 mg-150 mg Tablet] 1 each PO HS 01/17/15 Albuterol Sulfate Inhaler - [Ventolin HFA Inhaler -] 2 inh PO Q4H PRN #1 inh 01/21/15 Tiotropium [place] [Spiriva] 1 inh PO DAILY #1 inhaler 01/21/15 Emtricitabine/Tenofov Alafenam [Descovy 200-25 mg Tablet (Nf)] 1 each PO HS 05/17/17 Alprazolam [Xanax] 1 mg PO DAILY PRN 10/23/17 Azithromycin [Zithromax Tri-Josiah (3 DAYS) -] 500 mg PO DAILY #5 tablet 02/12/18 Benzonatate [Tessalon Pearls -] 100 mg PO TID #21 capsule 02/12/18 Oseltamivir Phosphate [Tamiflu -] 75 mg PO BID #8 capsule 02/12/18 Clindamycin [Cleocin -] 300 mg PO Q6HPO #28 capsule 06/19/18 Fluconazole [Diflucan] 150 mg PO ONCE #1 tablet 06/19/18 Tramadol HCl 50 mg PO Q6H PRN #10 tablet MDD 4 tabs 06/19/18 Anemia: Yes Asthma: Yes Cancer: No Cardiac Disorders: No CVA: Yes (rt. sided cva 2002) COPD: Yes CHF: No Dementia: No Diabetes: Yes (gestational in 2006) GI Disorders: No Disorders: No (incontenence) HTN: No Hypercholesterolemia: No Liver Disease: No Psychiatric Problems: Yes (anxiety) Seizures: No Thyroid Disease: No Other medical history: PE, - Surgical History Abdominal Surgery: Yes Appendectomy: Yes Cardiac Surgery: No Cholecystectomy: No Lung Surgery: No Neurologic Surgery: No Orthopedic Surgery: No - Reproductive History Is Patient Now?: No - Immunization History Td Vaccination: Yes Immunization Up to Date: Yes - Psycho-Social/Smoking History Smoking Status: No Smoking History: Never smoked Have you smoked in the past 12 months: No Number of Cigarettes Smoked Daily: 0 If you are a former smoker, when did you quit?: many years ago Information on smoking cessation initiated: Yes - Substance Abuse Hx (Audit-C & DAST Scrn) How often the patient has a drink containing alcohol: Never Score: In Men: 4 or > Positive; In Women: 3 or > Positive: 0 Screen Result (Pos requires Nsg. Audit-10AR): Negative In the last yr the pt used illegal drug/Rx for NonMed reason: No Score: Yes response is considered Positive: 0 Screen Result (Positive result requires Nsg. DAST-10): Negative Trauma Specific PMHX - Complaint Specific PMHX Arthritis: No Back Injury: Yes Neck Injury: Yes Hx Sacro Iliac Joint Dysfunction: No Review of Systems - Review of Systems Musculoskeletal: Yes: Joint Pain, Joint Swelling Integumentary: Yes: Bruising *Physical Exam - Vital Signs Last Vital Signs Temp Pulse Resp BP Pulse Ox 98 F 118 H 19 131/76 99 11/13/19 17:23 11/13/19 17:23 11/13/19 17:23 11/13/19 17:23 11/13/19 17:23 - Physical Exam 11/13/19 18:38 Pt crying in exam room, states her brother today General Appearance: Yes: Appropriately Dressed, Mild Distress HEENT: positive: Normal Voice Neck: positive: Supple Respiratory/Chest: negative: Respiratory Distress Female Pelvic Exam: positive: other (ttp over L and R 5th MCP, no sig swelling, no deformity, FROMI, NVI) Integumentary: positive: Dry, Warm Neurologic: positive: Fully Oriented, Alert, Normal Mood/Affect Medical Decision Making - Medical Decision Making 11/13/19 18:04 44-year-old female presents with multiple injuries to bilateral hands after using hands to punch a wall today after hearing that her brother unexpectedly . Complaining of pain mostly to right and left fifth digits. No sensory changes. Patient mostly teary in ED secondary to the loss of her brother with some tenderness to bilateral hands but no significant swelling or deformity. X-rays done of bilateral hands and reveals no fracture. DC with reassurance. Of note no SI or HI Discharge - Discharge Information Problems reviewed: Yes Clinical Impression/Diagnosis: Hand pain Qualifiers: Laterality: bilateral Qualified Code(s): M79.641 - Pain in right hand Hand contusion Qualifiers: Encounter type: initial encounter Laterality: unspecified laterality Qualified Code(s): S60.229A - Contusion of unspecified hand, initial encounter Condition: Good Disposition: HOME - Follow up/Referral Referrals: Lu Jay [Primary Care Provider] - - Patient Discharge Instructions Patient Printed Discharge Instructions: Contusion Additional Instructions: Your hand x-ray showed no fracture at this time you most likely have sprain and contusions to both of your hands which will heal in time. Take Motrin or Tylenol as needed If there is any changes to your x-ray we will call you - Post Discharge Activity Work/Back to School Note: Back to Work
[2019-11-13] MEDS ORDERED: ACETAMINOPHEN 325 MG TABLET (FP) ONE (18:34)
== END 2019-11-13 18:37 | disposition home or self-care (01) ==
LOC: JERFT 17:07
DX: M79.641 Pain in right hand (principal); M79.642 Pain in left hand
CPT/HCPCS: 73130-TC-LT-FY; 73130-TC-RT-FY; 99284-25

== ENCOUNTER 2020-12-01 14:21 | Emergency (ER) | payer OTHER ==
[2020-12-01 14:48] VITALS: BP 123/75; PULSE 91; TEMP 98.4; BMI 38.9
[2020-12-01] MEDS ORDERED: ALBUTEROL SO4 2.5/IPRATROPIUM 0.5 INH SOL 3 ML VIAL.NEB. NEB ONE ×2 (15:29→16:28)
[2020-12-01] MEDS ORDERED: ALBUTEROL SO4 0.083% IH SOL 2.5 MG/3 ML VIAL.NEB. NEB ONE ×3 (15:29→16:28)
== END 2020-12-01 18:44 | disposition home or self-care (01) ==
LOC: JER 14:21
PROC: 3E0F7GC Introduction of Other Therapeutic Substance into Respiratory Tract, Via Natural or Artificial Opening (ICD-10-PCS; principal; 2020-12-01)
DX: J45.909 Unspecified asthma, uncomplicated (principal)
CPT/HCPCS: 71046-TC-FY; 93005; 93010; 99284-25